=== PATIENT | male | born 1980 | race Caucasian/White ===

== ENCOUNTER 2019-05-16 15:28 | Emergency (ER) | payer SELFPAY ==
[2019-05-16] MEDS: ONDANSETRON 4 MG INJ IV ×5 (16:15→18:00)
[2019-05-16] MEDS: SOD CHLORIDE 0.9% 1,000 ML IV (16:16)
[2019-05-16 16:18] LABS: ADD MAN DIFF? NO
[2019-05-16 16:21] LABS: WHITE BLOOD COUNT 13.2 10^3/ul (4.8-10.8)
[2019-05-16 16:21] LABS: BASOPHILS % 0.2 % (0.0-2.0); HEMATOCRIT 45.6 % (42.0-52.0); HEMOGLOBIN 15.2 g/dl (14.0-18.0); LYMPHOCYTES # 0.7 10^3/ul (0.8-2.9); LYMPHOCYTES % 5.5 % (15.0-51.0); MEAN CORPUSCULAR HGB CONC 33.3 g/dl (32.0-37.0); MEAN CORPUSCULAR VOLUME 93.1 fl (82.0-101.0); MEAN PLATELET VOLUME 9.3 fl (7.4-10.4); MONOCYTE # 0.5 10^3/ul (0.3-0.9); MONOCYTES % 3.8 % (0.0-11.0); NEUTROPHIL # 11.9 10^3/ul (1.6-7.5); NEUTROPHILS % 90.2 % (39.0-77.0); PLATELET COUNT 176 10^3/UL (140-415); RED CELL DISTRIBUTION WIDTH 12.4 % (11.5-14.5)
[2019-05-16] MEDS: morphine 4 MG/ML VIAL IV ×4 (16:30→18:00)
[2019-05-16] MEDS: DIPHTH/TET/ACEL PERTUSS (ADULT) 0.5 ML VIAL IM* (16:31)
[2019-05-16 16:40] LABS: INR 0.96; PROTIME 12.9 Sec (11.9-14.9)
[2019-05-16 16:41] LABS: PARTIAL THROMBOPLASTIN TIME 22.6 Sec (23.0-35.0)
[2019-05-16 16:46] LABS: ALANINE AMINOTRANSFERASE 42 IU/L (13-69); ALBUMIN/GLOBULIN RATIO 1.66; ALKALINE PHOSPHATASE 62 IU/L (42-121); ANION GAP 16 (5-13); ASPARTATE AMINO TRANSFERASE 46 IU/L (15-46); BILIRUBIN,INDIRECT 0.7 mg/dl (0-1.1); BILIRUBIN,TOTAL 0.7 mg/dl (0.2-1.3); BLOOD UREA NITROGEN 10 mg/dl (7-20); CALCIUM 9.4 mg/dl (8.4-10.2); CARBON DIOXIDE 22 mmol/L (21-31); CHLORIDE 103 mmol/L (97-110); CREATININE 0.68 mg/dl (0.61-1.24); Estimated GFR > 60 mL/min (>60); GLUCOSE 131 mg/dl (70-220); POTASSIUM 3.9 mmol/L (3.5-5.1); SODIUM 141 mmol/L (135-144)
[2019-05-16 16:56] LABS: TROPONIN-I < 0.012 ng/ml (0.000-0.120)
[2019-05-16] MEDS ORDERED: FLUORESCEIN STRIP (17:42)
[2019-05-16] MEDS ORDERED: TETRACAINE 0.5% 4 ML OPH LEFT EYE (18:00)
[2019-05-16] MEDS ORDERED: FLUORESCEIN STRIP LEFT EYE (18:00)
[2019-05-16] MEDS: TETRACAINE 0.5% 4 ML OPH BOTH EYES (18:15)
[2019-05-16] MEDS: FLUORESCEIN STRIP BOTH EYES (18:15)
[2019-05-16] MEDS: CEFAZOLIN 2 GM/50 ML (PMX) 50 ML IVPB (18:23)
[2019-05-16] MEDS: PROPARACAINE 0.5% 15 ML OPH BOTH EYES (18:23)
[2019-05-16] MEDS: CLINDAMYCIN 600 MG/D5W (PMX) 50 ML IVPB (19:01)
[2019-05-16] MEDS: morphine 10 MG INJ IV (21:21)
== END 2019-05-16 21:40 | disposition short-term general hospital (02) ==
LOC: E/R 15:28
DX: S05.32XA Ocular laceration without prolapse or loss of intraocular tissue, left eye, initial encounter (principal); R07.9 Chest pain, unspecified; V89.2XXA Person injured in unspecified motor-vehicle accident, traffic, initial encounter
CPT/HCPCS: 70450; 70486; 71045; 72125; 80053; 84484; 85025; 85610; 85730; 90471; 90715; 93005; 96374; 96375; 96376; 99285-25